=== PATIENT | male | born 1980 | race Caucasian/White ===

== ENCOUNTER 2017-11-01 06:40 | Observation (INO) | payer BC ==
[2017-10-10 11:11] VITALS: BMI 21.0
[~2017-11-01] VITALS: Ht 182.9 cm; Wt 72.7 kg
[2017-11-01] VITALS (14 sets, daily range): BP systolic 122–147; BP diastolic 77–90; PULSE 71–94; TEMP 36.4–36.9; O2SAT 96–99; Ht 182.9 cm; Wt 72.7 kg
[~2017-11-01 06:40] MED LIST: CEFAZOLIN 2000MG IV PUSH 15 ML IV SCH; IBUP-1050 PO; LACTATED RINGER'S 1000ML 1,000 ML IV SCH; NSS 1000ML IV SCH
[2017-11-01] MEDS ORDERED: GELATIN SPONGE SZ 100 ONE ×2 (07:42→07:57)
[2017-11-01] MEDS ORDERED: THROMBIN FOR SOLN 20000 UNIT KIT ONE (07:42)
[2017-11-01] MEDS ORDERED: BUPIVACAINE/EPINEPHRINE 0.5% MPF 1:200,000 30 ML VIAL ONE ×2 (07:42→10:24)
[2017-11-01] MEDS ORDERED: BACITRACIN 50000 UNIT VIAL ONE (07:43)
[2017-11-01] MEDS ORDERED: LIDOCAINE 2% JELLY 5 ML TUBE ONE (07:49)
[2017-11-01] MEDS ORDERED: PROPOFOL IV EMULSION 10 MG/ML 100 ML VIAL ONE (07:51)
[2017-11-01] MEDS ORDERED: REMIFENTANIL 1 MG VIAL ONE ×2 (07:52→09:53)
[2017-11-01] MEDS ORDERED: PROPOFOL IV EMULSION 10 MG/ML 20 ML VIAL ONE (07:52)
[2017-11-01] MEDS ORDERED: MIDAZOLAM HCL 1 MG/ML 2ML VIAL ONE (08:00)
[2017-11-01] MEDS ORDERED: LIDOCAINE HCL 2% 2 ML VIAL (20MG/ML) ONE (08:00)
[2017-11-01] MEDS ORDERED: SUCCINYLCHOLINE CHLORIDE 20 MG/ML 10 ML VIAL IV ONE (08:00)
[2017-11-01] MEDS ORDERED: FENTANYL CITRATE INJ 50 MCG/1 ML 2 ML VIAL ONE ×2 (08:00→10:22)
--- NOTE | 2017-11-01 08:01 | HISTORY & PHYSICAL EXAMINATION ---
DATE OF ADMISSION: 11/01/2017 CHIEF COMPLAINT: Neck pain, arm pain, weakness at 37 years of age with significant compromise with weakness, progressive neurological deficit, progressive upper extremity issues. HISTORY OF PRESENT ILLNESS: He is being in preop for surgery, anterior cervical discectomy and fusion, C5-C6 and C6-C7 with iliac crest bone graft. We are also having spinal cord monitoring. Obie is 37 years of age, treated conservatively, has gone on to have progressive deficits. PAST MEDICAL HISTORY: Negative for carcinoma, diabetes, heart disease, hypertension. PAST SURGICAL HISTORY: Negative. ALLERGIES: Negative. CURRENT MEDICATIONS: None. FAMILY HISTORY: Diabetes, breast carcinoma. SOCIAL HISTORY: Single, no alcohol. [id number] cigarette smoker for 15 years. REVIEW OF SYSTEMS: Stiffness, joint pain, weakness. No feeling of malaise. Ear, nose and throat negative. Denies chest pain, palpitations. No asthma, wheezing. No nausea, vomiting. No confusion or depression. He has numbness, tingling, and weakness to the extremity and no easy bruisability. No immune deficiency. PHYSICAL EXAMINATION: GENERAL: He is in distress. He has a profoundly weak right arm. VITAL SIGNS: He is 6 foot tall, he is 155. Blood pressure 120/80, pulse 80. HEENT: Essentially normal. Facial nerves intact. CARDIAC: Normal S1, S2. LUNGS: Clear. ABDOMEN: Soft, nontender, bowel sounds present. MUSCULOSKELETAL: He has a Spurling maneuver. He has a Lhermitte sign. He has weakness of laboratory clerk, weakness of triceps and absent reflexes. IMAGING DATA: X-rays demonstrate a significant disc herniation in C6-C7 cervical spine, degenerative changes at C5-C6, cervical spine. PLAN: Includes anterior cervical discectomy and fusion, C5-C6 and C6-C7, cervical spine with iliac crest bone.
--- NOTE | 2017-11-01 08:14 | History & Physical Bridge Note ---
H&P Re-Evaluation Bridge Note: I have examined the patient, reviewed the History & Physical and in the interval since the performance of the History & Physical I have noted the following changes of clinical significance: No changes noted
[2017-11-01] MEDS ORDERED: ONDANSETRON INJ 2 MG/ML 2 ML VIAL ONE (08:49)
[2017-11-01] MEDS ORDERED: DEXAMETHASONE SOD INJ 4 MG/ML VIAL ONE (08:49)
[2017-11-01] MEDS ORDERED: PROMETHAZINE HCL INJ 12.5 MG in SODIUM CHLORIDE 0.9% 50ML 50 ML IV PRN (09:15)
[2017-11-01] MEDS ORDERED: FLUMAZENIL 0.1 MG/1 ML 10 ML VIAL IV PRN (09:15)
[2017-11-01] MEDS ORDERED: ATROPINE SULFATE 0.1 MG/ML 5ML SYR IV PRN (09:15)
[2017-11-01] MEDS ORDERED: ONDANSETRON INJ 2 MG/ML 2 ML VIAL IV PRN ×2 (09:15→10:45)
[2017-11-01] MEDS ORDERED: EpHEDrine SULFATE INJ 50 MG/ML AMP IV PRN (09:15)
[2017-11-01] MEDS ORDERED: NALOXONE HCL 0.4 MG/1 ML VIAL/CARP IV PRN ×2 (09:15→10:45)
--- NOTE | 2017-11-01 10:32 | DIAGNOSTIC IMAGING REPORT ---
Cervical SPINE, INTRAOPERATIVE FLUOROSCOPY HISTORY: C5 C7 ACDF. FLUOROSCOPY TIME: 6.9 seconds. FINDINGS: Intraoperative fluoroscopy was provided for the cervical spine. 2 fluoroscopic spot images were obtained. Anterior cervical discectomy and fusion at C5-C6 and C6-C7. The hardware is intact. IMPRESSION: Fluoroscopy provided for a C5-C7 ACDF.. Electronically signed by: Ezra Funez M.D. 11/01/2017 10:30 AM Dictated Date/Time: 11/01/2017 10:30 AM
[2017-11-01] MEDS ORDERED: MAGNESIUM HYDROXIDE SUSP 30 ML UDC PO PRN (10:45)
[2017-11-01] MEDS ORDERED: ACETAMINOPHEN IV 1,000 MG in EMPTY BAG 0 ML IV PRN (10:45)
[2017-11-01] MEDS ORDERED: RACEPINEPHRINE 2.25% NEBU SOLN 0.5 ML VIAL INH PRN (10:45)
[2017-11-01] MEDS ORDERED: DEXAMETHASONE INJ 8 MG in SYRINGE 0 ML IV PRN (10:45)
[2017-11-01] MEDS ORDERED: LORAZEPAM INJ 0.5 MG in SYRINGE 0.75 ML IV PRN (10:45)
[2017-11-01] MEDS ORDERED: HYDROmorphone INJ 0.5 MG/0.5 ML SYR IV PRN (10:45)
--- NOTE | 2017-11-01 10:49 | [facility] Post Operative Brief Note ---
Immediate Operative Summary Operative Date Nov 01, 2017. Pre-Operative Diagnosis Significant disc herniation in C6-C7 cervical spine, degenerative changes at C5-C6, cervical spine. Post-Operative Diagnosis Significant disc herniation in C6-C7 cervical spine, degenerative changes at C5-C6, cervical spine. Procedure(s) Performed C5-C6, C6-C7 Anterior Cervical Discectomy and Fusion with Iliac Crest Bone Graft C5-C6 and C6-C7. Surgeon Store Worker Surgeon(s) PAYTON Rueda Estimated Blood Loss 20ML Findings Consistent with Post-Op Diagnosis Specimens None per surgeon Drains None Anesthesia Type General
[2017-11-01] MEDS: HYDROmorphone INJ 1 MG/ML SYR IV PRN ×4 (11:06→11:43)
--- NOTE | 2017-11-01 11:11 | OPERATIVE REPORT ---
DATE OF OPERATION: 11/01/2017 PREOPERATIVE DIAGNOSIS: Two-level cervical spine disease, massive herniation C6-C7 cervical. POSTOPERATIVE DIAGNOSIS: Two-level cervical spine disease, massive herniation C6-C7 cervical. PROCEDURE: ACDF cervical spine, C5-C6, C6-7, evacuation of major herniation at C6-C7. COMPLICATIONS: Zero. BLOOD LOSS: 20. SURGEON: Ervin Yadav DO [employer] SALESPERSON: Curly Tiwari PA-C. SPONGE AND NEEDLE COUNTS: Correct. IMPLANTS USED: Coalition by [employer]. DESCRIPTION OF PROCEDURE: The patient was taken to the operating room and general intubated anesthetic provided to the patient, kept supine. Spinal cord monitoring applied along with a Morales catheter, Ancef and a formal timeout obtained, prepped and draped sterile. We made a transverse skin incision roughly over the C6 vertebrae, dissected down to the anterior aspect of the vertebral body. We were able to very safely get a formal discectomy at C5-C6 and C6-C7. I did a little bit upbiting on the vertebrae of 6 and down on 7, I was able to retrieve a very large herniated disc herniation on the spinal cord, foraminotomies provided at both levels. Same procedure was done at the C5-C6 level. I then went to the iliac crest, made a skin incision, fascial incision, harvested a structural autograft at this level. This was used for the bone graft up in the anterior aspect of the spine. The autograft was packed into the coalition device and the coalition devices were placed into the discectomy sites at C6-C7 and C5-C6 respectively. I placed these under compression. I locked the screws up down both levels, irrigated, then started our closure over a [place] drain. The same was done in the iliac crest, irrigation and closure, 1 Vicryl, 2-0 and 4-0 nylon. Sterile dressings applied. The patient returned to PACU stable. I attest to the content of the Intraoperative Record and any orders documented therein. Any exception s are noted below.
[2017-11-01] MEDS ORDERED: IV FLUIDS COMPLETED PRN (12:00)
--- NOTE | 2017-11-01 12:26 | Anesthesiology Progress Note ---
Anesthesia Post Op Note Date & Time Nov 01, 2017 at 12:25 Vital Signs Pain Intensity: 3 Vital Signs Past 12 Hours Date Time Temp Pulse Resp B/P (MAP) Pulse Ox O2 Delivery O2 Flow Rate FiO2 11/01/17 12:15 36.6 76 12 128/80 98 Nasal Cannula 2 Oxymask 11/01/17 12:00 36.6 69 12 122/77 98 Nasal Cannula 2 Oxymask 11/01/17 11:50 85 12 136/81 100 Nasal Cannula 2 Oxymask 11/01/17 11:40 83 12 135/88 99 Nasal Cannula 2 Oxymask 11/01/17 11:30 81 10 136/88 100 Nasal Cannula 2 Oxymask 11/01/17 11:20 89 19 151/95 100 Nasal Cannula 2 Oxymask 11/01/17 11:10 86 12 149/93 100 Oxymask 10 11/01/17 11:00 90 14 155/85 100 Oxymask 10 11/01/17 10:52 36.1 95 12 146/83 100 Oxymask 10 11/01/17 07:01 36.6 78 16 125/77 (93) 98 Room Air Notes Mental Status: alert / awake / arousable, participated in evaluation Pt Amnestic to Procedure: Yes Nausea / Vomiting: adequately controlled Pain: adequately controlled Airway Patency, RR, SpO2: stable & adequate BP & HR: stable & adequate Hydration State: stable & adequate Anesthetic Complications: no major complications apparent
[2017-11-01] MEDS ORDERED: HYDROmorphone INJ 1 MG/ML SYR IV PRN (12:45)
[2017-11-01] MEDS: SODIUM CHLORIDE 0.9% 1000ML 1,000 ML IV SCH (14:16)
[2017-11-01] MEDS: CEFAZOLIN IV 1,000 MG in SYRINGE 0 ML IV SCH ×2 (15:55→23:35)
[2017-11-01] MEDS: DEXAMETHASONE INJ 6 MG in SYRINGE 0 ML IV SCH ×2 (15:56→23:35)
[2017-11-01] MEDS: OXYCODONE HCL IR 5 MG TAB (IMMEDIATE RELEASE) PO PRN ×2 (19:28→23:34)
[2017-11-01] MEDS: DOCUSATE SODIUM 100 MG CAP PO SCH (20:21)
[2017-11-02] VITALS (10 sets, daily range): BP systolic 116–140; BP diastolic 72–78; PULSE 79–90; TEMP 36.6–37.1; O2SAT 94–97
[2017-11-02] MEDS: SODIUM CHLORIDE 0.9% 1000ML 1,000 ML IV SCH (01:33)
[2017-11-02] MEDS: OXYCODONE HCL IR 5 MG TAB (IMMEDIATE RELEASE) PO PRN ×2 (07:07→12:04)
[2017-11-02] MEDS: DEXAMETHASONE INJ 6 MG in SYRINGE 0 ML IV SCH (08:07)
[2017-11-02] MEDS: DOCUSATE SODIUM 100 MG CAP PO SCH (08:07)
[2017-11-02] MEDS: CEFAZOLIN IV 1,000 MG in SYRINGE 0 ML IV SCH (08:07)
[2017-11-02] MEDS ORDERED: HYDR-4383 PO (08:10)
--- NOTE | 2017-11-02 08:11 | Discharge Instructions ---
Discharge Instructions Date of Service Nov 02, 2017. Admission Reason for Admission: Cervical Stenosis, Cervical Disc Herniation Discharge Discharge Diagnosis / Problem: same Discharge Goals Goal(s): Improve function Activity Recommendations Activity Limitations: as noted below Lifting Limitations: no more than 5 pounds Exercise/Sports Limitations: until after follow-up appointment May Resume Sexual Activity: after follow-up appointment Shower/Bathe: keep incision dry . Instructions / Follow-Up Instructions / Follow-Up MEDICATIONS: Please take your prescriptions as instructed at your pre-op appointment. SPECIAL CARE: The following information is intended to answer some of the common questions and concerns regarding your surgery. Each patient is an individual and receives individual counselling throughout the course of treatment, from diagnosis to surgery all the way through recovery. What follows is not an exhaustive list, but should be a useful guide to some of the common questions and concerns patients have regarding their surgeries. These are not provided to keep you from calling us; rather, they give you something accurate and concrete to reference as you recover from your procedure. If you need us, we are available to you. As always, if you are not sure about something, call us at [phone]. MEDICAL EMERGENCIES: For these conditions, call 911 or go to your local hospital-based Emergency Department - not [facility] or equivalent. * Paralysis * Severe chest pain or difficulty breathing * Swelling or redness of either leg Spine procedures can be rather complex and though complications are rare, they do occur. In such cases, effective advice regarding emergency situations cannot always be addressed over the telephone. You may be referred to the emergency department for more effective management of your problem. Activity Limitations: It is important to give your body time to heal, so please limit your activities : * In general, don't do anything that moves your spine too much. You should avoid contact sports, twisting or heavy lifting while you recover. * 5-10 pounds is all you should attempt to lift. * You should not plan on driving for approximately 3 weeks and you should avoid traveling more than 30-45 minutes at a time. Longer trips should be broken down with walking breaks spaced appropriately. * Physical therapy is not usually required. * Walking and good posture practices will help you recover and regain your function. * Avoid straining or sudden changes in position. * In general, the goal is to take it easy and recover. Don't cause any new problems. Just relax. Showers: * Do not take a bath, use a Jacuzzi or hot tub or otherwise submerge your incision. * It is usually safe to take a shower 4-5 days after your surgery. * Your incision does not require any special creams or ointments. * Simply clean it with soap and water, dry and re-dress with a clean bandage afterwards. Incision: * Keep incision clean, dry and protected until your first follow-up appointment. * Some amount of drainage and redness is normal. Any drainage should be fairly clear and not have a foul odor. * If you feel anything is wrong or you have excessive drainage, please call us. * Your stitches and esperanza will be removed 10-14 days after your surgery. At the time of your first post-op visit. * Neck surgeries are typically closed with a suture underneath the skin. The steri-strips over the incision should be maintained until we see you in the office. Bracing: * You may be provided with a back or neck brace to encourage good posture and prevent injury. It will remind you not to do too much as you heal and will alert others to the fact that you have had a surgery. * Back braces may be removed for showers and when you are resting at home. They must be worn when you are walking around for any period of time or for travel. * For neck surgery, you will likely be provided with two cervical collars. The soft collar ([place] or foam rubber) is worn most commonly throughout the day and while sleeping. The plastic collar (provided at the hospital) is for showering/bathing. * Except while eating, collars should remain in place. More specifically, bracing is provided for a purpose and should be worn. * Please obtain your brace or collars prior to your operation and bring them to the hospital with you on the day of surgery. * You should also bring your collars to your post-op appointment with Dr. Yadav. You should always take good care of your body and practice healthy habits, especially following surgery. You should: * Follow your doctor's treatment plan * Sit and stand properly with good posture (ears over shoulders, shoulders over hips) Don't slouch * Learn to lift correctly * Exercise regularly (low-impact aerobic exercise is especially good, but check with your doctor first) * Generally, be up and walking for 5-10 minutes at a time at least 3-4 times per day from the day you get home * Increasing walking to tolerance until you can walk for 20-30 minutes at a time * Attain and maintain a healthy body weight * Eat healthy foods ( a well-balanced, low-fat diet rich in fruits and vegetables) and get enough calcium * Avoid excessive use of alcohol When to call our office - If you notice any of the following: * Increased pain not relieve by pain medicine * Fevers greater then 100 degrees F, chills or flu symptoms * Increased redness around incision * Drainage from the incision that is not clear * Any foul smelling drainage * Swelling or fluid collection beneath the skin Miscellaneous: * In the hospital, you may be given a walker or cane for support while walking. These are temporary needs and are intended to prevent injuries due to falls. You may discontinue them when you feel strong and steady enough on your feet. * Sleep in a comfortable position. We find that many patients find a lounge chair or recliner with several pillows to be beneficial in the early post-operative period. * The support stockings should be used for 7-10 days and may be discontinued when you are back to walking more and conducting usual household activities. No problem is insignificant. We are here to help you and get you well. Contact us at [phone]. Definitions: Foraminotomy: If part of the disc or a bone spur (osteophyte) is pressing on a nerve as it leaves the vertebra (through an exit called the foramen), a foraminotomy may be done. Otomy means "to make an opening." A foraminotomy is making the opening of the foramen larger, so the nerve can exit without being compressed. Laminotomy: Similar to the foraminotomy, a laminotomy makes a larger opening, this time in your bony plate protecting your spinal canal and spinal cord (the lamina). The lamina may be pressing on your nerve, so the surgeon may make more room for the nerves using a laminotomy. Laminectomy: Sometimes, a laminotomy is not sufficient. The surgeon may need to remove all or part of the lamina. This procedure is called a laminectomy. This can often be done at many levels without any harmful effects. Current Hospital Diet Patient's current hospital diet: Full Liquid Diet Discharge Diet Recommended Diet: Regular Diet Procedures Procedures Performed: C5-C6, C6-C7 Anterior Cervical Discectomy and Fusion with Iliac Crest Bone Graft C5-C6 and C6-C7. Pending Studies Studies pending at discharge: no Medical Emergencies . Who to Call and When: Medical Emergencies: If at any time you feel your situation is an emergency, please call 911 immediately. . Non-Emergent Contact Non-Emergency issues call your: Primary Care Provider . "Provider Documentation" section prepared by Ervin Yadav. .
--- NOTE | 2017-11-02 08:33 | DISCHARGE SUMMARY ---
DATE OF DISCHARGE: 11/02/17 Improved, stable, alert, oriented. Moderate complaints of pain. No swallowing difficulty. No shortness of breath. ASSESSMENT: Status post cervical spine reconstructive surgery. PLAN: We will discharge him home noon today. Instructions given. Precautions given. Collar. Prescriptions and a followup appointment. He had no issues.
[2017-11-03] MEDS ORDERED: BISACODYL 5 MG TABEC PO PRN (06:00)
[2017-11-03] MEDS ORDERED: BISACODYL 10 MG SUPP PR PRN (06:00)
== END 2017-11-02 12:52 | disposition home or self-care (01) ==
LOC: C.ACU 06:40 → C.3E 08:00 → ENRESERV 11:53
PROVIDERS: ADMIT Orthopaedic Surgery Orthopaedic Surgery of the Spine; ATTEND Orthopaedic Surgery Orthopaedic Surgery of the Spine
DX: M48.02 Spinal stenosis, cervical region (principal); F17.200 Nicotine dependence, unspecified, uncomplicated